=== PATIENT | male | born 1950 | race Caucasian/White ===

== ENCOUNTER 2016-10-02 09:27 | Outpatient (CLI) ==
[2016-03-08 18:54] VITALS: BMI 32.5
--- NOTE | 2016-10-02 11:22 | CT ---
EXAM: CT abdomen pelvis without contrast HISTORY: Flank pain COMPARISON: 03/26/2014 TECHNIQUE: CT abdomen pelvis performed without intravenous contrast. Coronal and sagittal reformat luis alberto images obtained. FINDINGS: There is a small moderate pericardial effusion that appears grossly unchanged from CT [address] 03/08/2016. Granulomatous calcification left lung base. No free air. No acute abnormalities of the bones. There are degenerative changes in the spine. Evaluation organ parenchyma limited withou t contrast. Liver appears normal. Gallbladder appears normal. Pancreas appears normal. Spleen ap pears normal. Adrenals appear normal. Calcifications in the kidneys appear to be vascular. No neph rolithiasis. No hydronephrosis. There is a 3.2 cm right renal cyst measuring simple fluid attenuat ion. No calculi visualized in the normal course of the ureters. Bladder is only minimally distende d and poorly evaluated, grossly unremarkable. Prostate is moderately enlarged. Aorta normal in angel iber with atherosclerosis of the aorta and its branches. No lymphadenopathy or ascites. Small bila teral fat containing inguinal hernias. Small fat-containing umbilical hernia. Stomach appears norm al. No dilated loops small bowel. Appendix appears normal. Mild colonic diverticulosis. No infla mmatory stranding in the abdomen or pelvis. IMPRESSION: 1. No hydronephrosis are nephrolithiasis. No acute inflammatory process in the abdomen or pelvis. 2. Colonic diverticulosis. 3. Moderately enlarged prostate. 3. Small to moderate pericardial effusion, grossly unchanged.
== END 2016-10-02 09:28 | disposition home or self-care (01) ==
LOC: RAD 09:27
PROVIDERS: ATTEND Family Medicine
DX: R10.9 Unspecified abdominal pain (principal)
CPT/HCPCS: 74176

== ENCOUNTER 2018-06-19 00:38 | Emergency (ER) | payer OTHER ==
[2018-06-19 00:51] VITALS: TEMP 97.5; BMI 34.2
[2018-06-19] MEDS ORDERED: DUONEB NEB ONE (01:01)
[2018-06-19] MEDS ORDERED: DUONEB NEB STA (01:01)
[2018-06-19] MEDS ORDERED: SOLU-MEDROL 125 MG IVP STA (01:01)
[2018-06-19] MEDS ORDERED: SODIUM CHLORIDE 1,000 ML IV STA (01:01)
--- NOTE | 2018-06-19 01:13 | ED.PDOC ---
General ED Provider: Dr. GENE SAVAGE Chief Complaint: Shortness of Air Stated Complaint: chest pain and shortness of air x 2 days. Though that he may have had a Heart attack yesterday but would not come to the hospital. Time Seen by Physician: 01:06 Mode of Arrival: Wheelchair Information Source: Patient Exam Limitations: Altered mental status Primary Care Provider: SUNSHINE RIVAS Nursing and Triage Documentation Reviewed and Agree: Yes Does patient meet sepsis criteria?: No System Inflammatory Response Syndrome: Not Applicable Sepsis Protocol: For patient's 13 years and over: Temp is 96.8 and below OR 101 and greater Pulse >90 BPM Resp >20/minute Acutely Altered Mental Status Are patient's symptoms suggestive of a new infection, such as: -Pneumonia -Skin, Soft Tissue -Endocarditis -UTI -Bone, Joint Infection -Implantable Device -Acute Abdominal Infection -Wound Infection -Meningitis -Blood Stream Catheter Infection -Unknown Review of Systems - Review Of Systems Constitutional: Reports: No symptoms Respiratory: Reports: Short of air Cardiac: Reports: Chest pain (tightness ) All Other Systems: Reviewed and Negative Past Medical History - Past Medical History Previously Healthy: No Endocrine: Reports: DM 2 Cardiovascular: Reports: Hypertension Respiratory: Reports: None Hematological: Reports: None Gastrointestinal: Reports: None Genitourinary: Reports: None Neuro/Psych: Reports: Anxiety Musculoskeletal: Reports: None Cancer: Reports: None - Surgical History General Surgical History: Reports: Unknown (multiple) - Family History Family History: Reports: None - Social History Smoking Status: Current some day smoker, Heavy tobacco smoker Hx Substance Use: No Alcohol Screening: Occasionally - Immunizations Tetanus Shot up to Date: Yes Physical Exam - Physical Exam Appearance: Ill-appearing Ill-appearing: Severe Pain Distress: Moderate Eyes: FRENCH, EOMI, Conjunctiva clear ENT: Ears normal, Nose normal, Oropharynx normal Neck: Supple Respiratory: Airway patent, Breath sounds clear, Breath sounds equal, Breath sounds diminished, Respirations nonlabored Cardiovascular: Pulses normal, No rub, No murmur, Tachycardia GI/: Soft Musculoskeletal: Normal strength, ROM intact, No edema, No calf tenderness Skin: Warm, Dry, Normal color Neurological: Sensation intact, Motor intact, Reflexes intact, Cranial nerves intact, Alert, Oriented Interpretation - Radiology Interpretation Radiology Interpretation By: ED Physician Radiology Results: Negative Exam Interpreted: Portable CXR (except cardiomegaly ) Radiology Interpretation By: Radiologist Radiology Results: Positive (pleural effusion. No PE noted.) Exam Interpreted: CT Scan - EKG Interpretation Time of EKG #1: 00:56 Rate: Tachy Rhythm: Sinus Ectopy: PVCs [place]: Right ST Segment: Normal Interpretation: no ischemic changes Re-Evaluation - Re-Evaluation Time of Re-Evaluation: 01:27 Status: Improved Vital Signs Stable: No (blood pressure is elevated. ) Pain Level: chest tightness is gone Physician Notification - Case Discussed Physician Notified: Dr. Rivas Time of Notification: 03:49 (Give 40mg lasix and Transfer to [facility]. ) Critical Care Note - Critical Care Note Total Time (mins): 50 (Managing elevated blood pressure and CHF ) Course - Course Hematology/Chemistry: 06/19/18 01:23 06/19/18 01:23 Orders, Labs, Meds: Lab Review 06/19/18 06/19/18 06/19/18 01:04 01:23 01:23 WBC 9.36 RBC 4.94 Hgb 14.5 Hct 42.9 MCV 86.8 MCH 29.4 MCHC 33.8 RDW Coeff of Piero 14.6 Plt Count 307 Immature Gran % (Auto) 1.1 Neut % (Auto) 68.2 Lymph % (Auto) 21.9 [place] % (Auto) 5.3 Eos % (Auto) 2.8 Baso % (Auto) 0.7 Immature Gran # (Auto) 0.1 Neut # (Auto) 6.4 Lymph # (Auto) 2.1 [place] # (Auto) 0.5 Eos # (Auto) 0.3 Baso # (Auto) 0.1 D-Dimer (Manual) Puncture Site Lrad O2 Saturation 87.0 L ABG pH 7.408 ABG pCO2 49.6 H ABG pO2 54.0 L* ABG HCO3 31.3 H ABG Total CO2 33 H ABG Base Excess 7 H Remberto Test + FiO2 % 21.0 Sodium 144.3 Potassium 3.51 Chloride 102.7 Carbon Dioxide 33.9 H Anion Gap 11.21 BUN 33.0 H Creatinine 1.47 H Estimated GFR (MDRD) 48.00 BUN/Creatinine Ratio 22.44 Glucose 112.9 H Lactic Acid Calcium 9.85 Total Bilirubin 0.31 AST 45.0 ALT 73.2 H Alkaline Phosphatase 68.7 Total Creatine Kinase 70.9 Troponin I 0.085 NT-Pro-B Natriuret Pep Total Protein 6.84 Albumin 3.85 Globulin 2.99 Albumin/Globulin Ratio 1.28 Procalcitonin 06/19/18 06/19/18 06/19/18 01:23 01:23 01:23 WBC RBC Hgb Hct MCV MCH MCHC RDW Coeff of Piero Plt Count Immature Gran % (Auto) Neut % (Auto) Lymph % (Auto) [place] % (Auto) Eos % (Auto) Baso % (Auto) Immature Gran # (Auto) Neut # (Auto) Lymph # (Auto) [place] # (Auto) Eos # (Auto) Baso # (Auto) D-Dimer (Manual) 900.15 Puncture Site O2 Saturation ABG pH ABG pCO2 ABG pO2 ABG HCO3 ABG Total CO2 ABG Base Excess Remberto Test FiO2 % Sodium Potassium Chloride Carbon Dioxide Anion Gap BUN Creatinine Estimated GFR (MDRD) BUN/Creatinine Ratio Glucose Lactic Acid 1.88 Calcium Total Bilirubin AST ALT Alkaline Phosphatase Total Creatine Kinase Troponin I NT-Pro-B Natriuret Pep Total Protein Albumin Globulin Albumin/Globulin Ratio Procalcitonin < 0.05 06/19/18 01:23 WBC RBC Hgb Hct MCV MCH MCHC RDW Coeff of Piero Plt Count Immature Gran % (Auto) Neut % (Auto) Lymph % (Auto) [place] % (Auto) Eos % (Auto) Baso % (Auto) Immature Gran # (Auto) Neut # (Auto) Lymph # (Auto) [place] # (Auto) Eos # (Auto) Baso # (Auto) D-Dimer (Manual) Puncture Site O2 Saturation ABG pH ABG pCO2 ABG pO2 ABG HCO3 ABG Total CO2 ABG Base Excess Remberto Test FiO2 % Sodium Potassium Chloride Carbon Dioxide Anion Gap BUN Creatinine Estimated GFR (MDRD) BUN/Creatinine Ratio Glucose Lactic Acid Calcium Total Bilirubin AST ALT Alkaline Phosphatase Total Creatine Kinase Troponin I NT-Pro-B Natriuret Pep 4020.000 H Total Protein Albumin Globulin Albumin/Globulin Ratio Procalcitonin Orders Category Date Time Status ABG DRAW REQUEST Routine CARDIO 06/19/18 01:04 Ordered EKG-(ED ONLY) Stat CARDIO 06/19/18 01:01 Completed NEBULIZER TREATMENT Stat CARDIO 06/19/18 01:03 Completed NPO REMINDER: IMAGING ONCE CARE 06/19/18 02:17 Completed ED WORM PICKER APPLIED .ONCE EMERGENCY 06/19/18 01:01 Active ED IV/MEDIPORT/POWERPORT .ONCE EMERGENCY 06/19/18 01:20 Active OXYGEN [ED APPLY O2] .ONCE EMERGENCY 06/19/18 01:04 Active ABG Stat LAB 06/19/18 01:04 Completed BLOOD CULTURE (ED ONLY) Stat LAB 06/19/18 01:23 Received CBC W/ AUTO DIFF Stat LAB 06/19/18 01:23 Completed COMPREHENSIVE METABOLIC PANEL Stat LAB 06/19/18 01:23 Completed CREATINE KINASE Stat LAB 06/19/18 01:23 Completed D-DIMER Stat LAB 06/19/18 01:23 Completed LACTIC ACID Stat LAB 06/19/18 01:23 Completed PRO-BNP [NT-PROBNP] Stat LAB 06/19/18 01:23 Completed PROCALCITONIN Stat LAB 06/19/18 01:23 Completed TROPONIN I Stat LAB 06/19/18 01:23 Completed 0.9 % Sodium Chloride [Saline Flush] MEDS 06/19/18 01:20 Ordered 1 syr IVF PRN PRN Clonidine HCl [Catapres] MEDS 06/19/18 03:19 Discontinued 0.1 mg PO ONCE STA Furosemide [Lasix] MEDS 06/19/18 03:47 Stat 40 mg IVP ONCE STA Ipratropium/Albuterol Neb [Duoneb] MEDS 06/19/18 01:01 Discontinued 1 vial NEB .STK-MED ONE Ipratropium/Albuterol Neb [Duoneb] MEDS 06/19/18 01:01 Discontinued 1 vial NEB ONCE STA Labetalol HCl [Trandate] MEDS 06/19/18 01:17 Discontinued 20 mg IVP ONCE STA Methylprednisolone Sod Succ/Pf [Solu-Medrol 125 mg] MEDS 06/19/18 01:01 Discontinued 125 mg IVP ONCE STA Sodium Chloride 0.9% [Sodium Chloride] 1,000 ml MEDS 06/19/18 01:01 Active IV 75 mls/hr CHEST, 1V AP ONLY Stat RADS 06/19/18 01:[address] CHEST PE PROTOCOL Stat RADS 06/19/18 02:16 Completed Medications Generic Name Dose Route Start Last Admin Trade Name Freq PRN Reason Stop Dose Admin Sodium Chloride 1,000 mls @ 75 mls/hr 06/19/18 01:01 06/19/18 01:24 Sodium Chloride IV 06/19/18 14:20 75 mls/hr .[id number] STA Administration Sodium Chloride 1 syr 06/19/18 01:20 Saline Flush IVF PRN PRN To flush IV Discontinued Medications Generic Name Dose Route Start Last Admin Trade Name Dionisio PRN Reason Stop Dose Admin Albuterol/Ipratropium 1 vial 06/19/18 01:01 06/19/18 01:33 Duoneb NEB 06/19/18 01:02 Not Given ONCE STA Clonidine 0.1 mg 06/19/18 03:19 06/19/18 03:24 Catapres PO 06/19/18 03:20 0.1 mg ONCE STA Administration Furosemide 40 mg 06/19/18 03:47 Lasix IVP 06/19/18 03:48 ONCE STA Labetalol HCl 20 mg 06/19/18 01:17 06/19/18 01:29 Trandate IVP 06/19/18 01:18 20 mg ONCE STA Administration Methylprednisolone Sodium Succinate 125 mg 06/19/18 01:01 06/19/18 01:20 Solu-Medrol 125 Mg IVP 06/19/18 01:02 125 mg ONCE STA Administration Vital Signs: Temp Pulse Resp BP Pulse Ox 06/19/18 03:26 78 188/109 H 06/19/18 02:55 81 18 191/110 H 93 L 06/19/18 00:38 97.5 F L 106 H 28 H 200/120 H 84 L Departure - Departure Time of Disposition: 03:48 Disposition: ADMITTED INPATIENT Discharge Problem: CHF with unknown LVEF, Hypertensive urgency, malignant Condition: Fair Pt referred to PMD for follow-up: Yes IPMP verified?: No Allergies/Adverse Reactions: Allergies No Known Allergies Allergy (Verified 06/19/18 00:47) Home Medications: Ambulatory Orders Glyburide [Diabeta] 5 mg PO BIDBRS 03/08/16 RX: Atorvastatin Calcium 10 mg PO BEDTIME 03/08/16 RX: Clonidine HCl 0.2 mg PO TID 03/08/16 RX: Gabapentin 600 mg PO TID 03/08/16 RX: Metformin HCl 1,000 mg PO BID 03/08/16 Tamsulosin HCl [Flomax] 0.4 mg PO DAILY 03/08/16 Finasteride [Proscar] 5 mg PO DAILY 06/19/18 RX: Hydralazine HCl 10 mg PO BID 06/19/18
[2018-06-19] MEDS ORDERED: TRANDATE IVP STA ×2 (01:17→04:07)
--- NOTE | 2018-06-19 01:26 | DI ---
Exam: Chest one-view History: Chest pain FINDINGS: Technically inhibited study secondary to light radiographic technique. The cardiomediasti nal contours are normal. Pulmonary vasculature and interstitium are accentuated. No focal infiltrat henny opacities. No acute chest wall abnormality. Atherosclerotic calcification of the aorta. Impression: Prominent pulmonary vasculature and interstitium reflecting component of underlying scar ring and chronic obstructive pulmonary disease. No focal infiltrative opacities are seen.
--- NOTE | 2018-06-19 03:16 | CT ---
EXAM: CT pulmonary angiogram. HISTORY: Shortness of breath. Chest tightness. PROCEDURE: After the intravenous injection of contrast a CT pulmonary angiogram was performed with c ontiguous axial CT images of the chest with multiplanar reformats, MIP images and 3-D reformats. FINDINGS: Comparison made with CT chest of 03/08/2016. There is normal enhancement of the pulmonary arteries with no evidence of pulmonary embolism. The heart is enlarged. There is a small pericardial effusion measuring up to 1.4 cm. There is aneurysmal dilatation of the ascending aorta which measure s 4.3 cm in diameter with no evidence of aneurysm leak. There are a few enlarged mediastinal lymph n odes measuring up to 1.2 cm in short axis. There are calcified hilar lymph nodes. There are emphysem atous changes throughout both lungs. There is biapical scarring. There is minimal bibasilar atelecta sis and/or pneumonia. There are small bilateral pleural effusions. There are degenerative changes in the spine. There is a stable 1.6 cm left adrenal nodule. The right adrenal gland is normal in appea klarissa. There is diffuse fatty infiltration of the liver. Impression: No evidence of pulmonary embolism. Bibasilar atelectasis and/or pneumonia. Small bilateral pleural effusions. Mediastinal lymphadenopathy as described. Recommend follow-up CT in 3 months to confirm stability. Chronic obstructive pulmonary disease. Ascending aortic aneurysm as described. Cardiomegaly. Diffuse fatty infiltration of the liver.
[2018-06-19] MEDS ORDERED: CATAPRES PO STA (03:19)
[2018-06-19 03:27] VITALS: BP 188/109
[2018-06-19] MEDS ORDERED: LASIX IVP STA (03:47)
== END 2018-06-19 04:15 | disposition short-term general hospital (02) ==
LOC: ED 00:38
DX: I50.9 Heart failure, unspecified (principal); I16.0 Hypertensive urgency; R06.02 Shortness of breath; R07.9 Chest pain, unspecified; E11.9 Type 2 diabetes mellitus without complications; F17.210 Nicotine dependence, cigarettes, uncomplicated; Z79.899 Other long term (current) drug therapy
CPT/HCPCS: 36415; 80053; 82550; 82803; 83605; 83880; 84145; 84484; 85025; 85379; 87040; 93005; 93010; 94640; 96361; 96374; 96375; 96376; 99285

== ENCOUNTER 2019-01-27 08:24 | Outpatient (CLI) | END 2019-01-27 08:39 | disposition short-term general hospital (02) | LOC: AMBL 08:24 | PROVIDERS: ATTEND Emergency Medicine | DX: R06.9 Unspecified abnormalities of breathing (principal); I10 Essential (primary) hypertension ==

== ENCOUNTER 2019-02-13 11:24 | Outpatient (CLI) | payer OTHER | END 2019-02-13 11:25 | disposition home or self-care (01) | LOC: CAR 11:24 | PROVIDERS: ATTEND Family Medicine | DX: R06.00 Dyspnea, unspecified (principal) | CPT/HCPCS: 94761 ==